=== PATIENT | male | born 1980 | race Asian ===

== ENCOUNTER 2020-07-19 06:37 | Day surgery (SDC) | payer MEDICAID ==
[~2020-07-19] VITALS: Ht 170.2 cm; Wt 56.7 kg
[2020-07-19] MEDS ORDERED: albumin 25% 100mL bottle x 1 IV PRN (06:55)
[2020-07-19 07:00] VITALS: BP 131/86
[2020-07-19] MEDS ORDERED: FURO-150 PO (07:10)
[2020-07-19] MEDS ORDERED: ONDA4TAB6 PO (07:10)
[2020-07-19 09:10] VITALS: BP 125/85
[2020-07-19 09:25] VITALS: BP 132/81
[2020-07-19 09:30] VITALS: BP 123/79
[2020-07-19 09:40] VITALS: BP 124/77
== END 2020-07-19 09:40 | disposition home or self-care (01) ==
LOC: SSTAY O 06:37
PROVIDERS: ATTEND Radiology Vascular & Interventional Radiology
DX: R18.8 Other ascites (principal); R14.0 Abdominal distension (gaseous); Z72.89 Other problems related to lifestyle; Z79.899 Other long term (current) drug therapy
CPT/HCPCS: 49083

== ENCOUNTER 2020-08-03 08:48 | Day surgery (SDC) | payer MEDICAID ==
[~2020-08-03] VITALS: Ht 170.2 cm; Wt 53.6 kg
[2020-08-03] VITALS (9 sets, daily range): BP systolic 93–130; BP diastolic 29–87
[~2020-08-03 08:48] MED LIST: FURO-150 PO; ONDA4TAB6 PO
[2020-08-03] MEDS ORDERED: normal saline 1000ml 1,000 ML IV PRN (09:15)
[2020-08-03] MEDS ORDERED: fentaNYL/PF 50MCG/1 ML 2ML syringe ONE (10:47)
[2020-08-03] MEDS ORDERED: midazolam 1 mg/ML 2ml injection ONE (10:47)
== END 2020-08-03 12:25 | disposition home or self-care (01) ==
LOC: SSTAY O 08:48
PROVIDERS: ATTEND Radiology Vascular & Interventional Radiology
DX: K66.8 Other specified disorders of peritoneum (principal); Z72.89 Other problems related to lifestyle; Z79.899 Other long term (current) drug therapy; Z87.891 Personal history of nicotine dependence
CPT/HCPCS: 49180; 77012; J2250; J3010

== ENCOUNTER 2022-07-30 20:18 | Emergency (ER) | payer MEDICAID ==
[~2022-07-30] VITALS: Ht 170.2 cm; Wt 64.5 kg
[2022-07-30 20:30] VITALS: BP 158/99
[2022-07-30] MEDS ORDERED: AMOX-580 PO (21:38)
[2022-07-30] MEDS ORDERED: amox tr/potassium clavulanate 875/125mg TAB PO ONE (21:40)
[2022-07-30] MEDS ORDERED: TETanus/Pertussis (Acell)/Diphther VAC/PF (Tdap-Adult) 0.5ml syringe IMVAC ONE (22:15)
--- NOTE | 2022-07-30 22:25 | NUR ---
WOUND CLEANED AND DRESSING APPLIED
== END 2022-07-30 22:43 | disposition home or self-care (01) ==
LOC: ER 20:18
DX: S61.431A Puncture wound without foreign body of right hand, initial encounter (principal); W54.0XXA Bitten by dog, initial encounter; Z79.899 Other long term (current) drug therapy; Y93.89 Activity, other specified; Y92.89 Other specified places as the place of occurrence of the external cause; Y99.8 Other external cause status
CPT/HCPCS: 90471; 90715; 99283; A6449

== ENCOUNTER 2024-10-27 09:25 | Outpatient (CLI) | payer MEDICAID ==
[2024-10-27] MEDS ORDERED: iohexol 300mg/ml 100ml inj. ONE (09:55)
--- NOTE | 2024-10-27 14:11 | RADIOLOGY REPORT ---
Indication: OTHER NONSPECIFIC ABNORMAL FINDING OF LUNG FIELD Technique: CT axial images of the chest are obtained with intravenous contrast. Coronal and sagittal reformats were obtained. Radiation Dose Information: CTDI volume is 9.1 mGy. Dose-length product is 323 mGy*cm Comparison: None FINDINGS: Trachea patent. No pneumothorax. Right upper lobe solid nodule measuring 9 mm. Partially calcified right lower lobe nodule measuring 5 mm. 6 mm right upper lobe solid nodule. Left lower lobe pleural-based calcified nodule measuring 8 mm. Left lower lobe partially calcified nodule measuring 8 mm. Left upper lobe calcified nodule measuring 5 mm. Left upper lobe calcified nodule measuring 4 mm. The heart is normal in size. 13 mm right hilar lymph node. Subcarinal lymph node measuring 12 mm. Calcified left hilar lymph node measuring 7 mm. Calcified right hilar lymph node measuring 9 mm. Right paratracheal lymph node measuring 9 mm. No supraclavicular, axillary lymphadenopathy. Small right pleural effusion that is loculated with thick rim. Hepatic subcentimeter hypodensities, too small to characterize statistically likely representing cysts. No acute osseous abnormality. IMPRESSION: Small right pleural effusion that is loculated with thick rim. Differential considerations include malignant effusion, empyema and other etiologies. Recommend pulmonology/ surgical consultation for further evaluation. Multiple pulmonary solid nodules as described, measuring up to 9 mm. Recommend follow-up per Fleischner society criteria guidelines. Mediastinal/hilar lymphadenopathy. Other findings as described.
== END 2024-10-27 23:59 | disposition home or self-care (01) ==
LOC: RAD 09:25
PROVIDERS: ATTEND Nurse Practitioner
DX: J90 Pleural effusion, not elsewhere classified (principal); R91.8 Other nonspecific abnormal finding of lung field; R59.0 Localized enlarged lymph nodes
CPT/HCPCS: 71260; Q9967